=== PATIENT | female | born 1990 | race Caucasian/White ===

== ENCOUNTER 2022-04-12 10:40 | Outpatient (CLI) | payer BC, SELFPAY ==
[2022-04-12 14:53] LABS: Cholesterol* 182 mg/dL (90-199); Glucose* 83 mg/dL (60-115); HDL Cholesterol* 44 mg/dL (>=50); LDL Cholesterol Calculated 119 mg/dL (<100); Triglycerides* 95 mg/dL (40-149)
== END 2022-04-12 10:41 | disposition home or self-care (01) ==
PROVIDERS: Visit Provider Registered Nurse
DX: Z01.419 Encounter for gynecological examination (general) (routine) without abnormal findings (principal); Z13.6 Encounter for screening for cardiovascular disorders; Z13.1 Encounter for screening for diabetes mellitus
CPT/HCPCS: 80061; 82947